=== PATIENT | female | born 1950 | race Caucasian/White ===

== ENCOUNTER 2021-09-09 07:26 | Outpatient (CLI) | payer OTHER, SELFPAY ==
--- NOTE | 2021-09-09 07:31 | ECHOCS_ITS ---
Reason For Study: ARRCLARENCE Procedure This was a 2D Doppler, Color Flow transthoracic echocardiogram. The study was technically difficult. Exam performed in department. Left Ventricle Normal LV size. Left ventricular systolic function is lower limits of normal. The estimated ejection fraction is 50 %. Stage 1 diastolic dysfunction. No regional wall motion abnormalities noted. Right Ventricle Normal RV size. Normal systolic function. Atria Normal left atrium. Normal right atrium. Bubble contrast study negative for right to left interatrial shunt. Mitral Valve There is moderate mitral annular calcification. Mild (1+) eccentric mitral valve insufficiency. Tricuspid Valve Normal tricuspid valve. Mild to moderate (1-2+) tricuspid valve insufficiency. Pulmonary artery systolic pressure is 42 mmHg. Aortic Valve Normal aortic valve. Trisinus/trileaflet aortic valve. Pulmonic Valve Normal pulmonic valve. Great Vessels Normal aortic root. The pulmonary artery is normal size. Normal inferior vena cava. Pericardium/Pleural No pericardial effusion. Medication 22 gauge I.V. with prn adaptor inserted into right arm. Diluted definity 3ml given slow IV push to enhance endocardial definition. Performed a rapid injection of agitated mix of 9 cc saline and 1cc air to assess for atrial septal defect. MMode/2D Measurements & Calculations LVIDd: 4.8 cm IVSd: 1.0 cm Ao root diam: 2.9 cm LVIDs: 3.2 cm LVPWd: 0.97 cm RVDd: 3.5 cm FS: 32.2 % LAV(MOD-bp): 76.2 ml LVAd ap4: 37.3 cm2 SV(MOD-sp4): 74.5 ml LAV(MOD-bp) Indexed: 39.7 ml/m2 LVLd ap4: 8.6 cm LAV(MOD-sp2): 74.0 ml EDV(MOD-sp4): 129.8 ml LAV(MOD-sp4): 69.8 ml EDV(sp4-el): 136.4 ml LVAs ap4: 21.0 cm2 LVLs ap4: 7.0 cm ESV(MOD-sp4): 55.3 ml ESV(sp4-el): 54.0 ml EF(MOD-sp4): 57.4 % EF(sp4-el): 60.4 % SV(sp4-el): 82.4 ml LA A4 area: 20.9 cm2 LA dimension(2D): 4.1 cm RA A4 area: 13.4 cm2 Time Measurements MV dec time: 0.23 sec Doppler Measurements & Calculations MV E max abhilash: 73.9 cm/sec Lat Peak E' Abhilash: 9.3 cm/sec Med Peak E' Abhilash: 5.1 cm/sec MV A max abhilash: 118.0 cm/sec E/E' lat: 8.0 E/E' med: 14.6 MV E/A: 0.63 Ao V2 max: 176.8 cm/sec LV V1 max: 112.0 cm/sec PA V2 max: 129.6 cm/sec Ao max P.5 mmHg LV V1 max P.0 mmHg TR max abhilash: 311.0 cm/sec TR max P.7 mmHg ECHO/Echo Complete W/ Contrast Interpretation Summary Normal LV size. Left ventricular systolic function is lower limits of normal. Bubble contrast study negative for right to left interatrial shunt. There is moderate mitral annular calcification. The estimated ejection fraction is 50 %. Stage 1 diastolic dysfunction. Contrast injection was performed. Ordering Physician: Cecil Jose Referring Physician: EPI CUEVA Performed By: Emilie Martines RDCS
== END 2021-09-09 23:59 | disposition home or self-care (01) ==
LOC: CVS 07:28
PROVIDERS: PCP Family Medicine; Referring Provider Internal Medicine Cardiovascular Disease; Visit Provider Internal Medicine Cardiovascular Disease
DX: Z01.810 Encounter for preprocedural cardiovascular examination (principal); I44.7 Left bundle-branch block, unspecified
CPT/HCPCS: 93306; Q9957; A4216; C8929

== ENCOUNTER 2021-09-23 12:33 | Outpatient (CLI) | payer OTHER, SELFPAY ==
--- NOTE | 2021-08-26 16:04 | EKG12_ITS ---
Test Reason : PREOP Blood Pressure : / mmHG Vent. Rate : 077 BPM Atrial Rate : 077 BPM P-R Int : 150 ms QRS Dur : 134 ms QT Int : 416 ms P-R-T Axes : 000 -15 108 degrees QTc Int : 470 ms Normal sinus rhythm Left bundle branch block Abnormal ECG Confirmed by ANNE LYNN, JULIUS ([id number]), technical editor RYAN CERNA ([id number]) on 08/27/2021 8:28:57 AM Referred By: EMERITA Confirmed By:JULIUS RODRÍGUEZ MD
[2021-08-26 16:39] LABS: International Normalized Ratio 1.1; Partial Thromboplast Time 29.8 Seconds (24.1-36.2); Prothrombin Time (Protime)PT. 13.2 SECONDS (11.7-14.9)
[2021-08-26 16:41] LABS: Hemoglobin A1c 5.6 % (3.8-5.6)
[2021-08-26 17:03] LABS: Hematocrit 25.6 % (37-47); Hemoglobin 12.9 g/dL (12.0-15.0); Red Blood Count 2.42 M/mm3 (4.2-5.4); White Blood Count 9.8 K/mm3 (4.4-11.0)
[2021-08-26 17:04] LABS: Mean Corp Hgb Conc 50.4 g/dL (32-36); Mean Corpuscular Hgb 53.3 pg (27.0-32.0); Mean Corpuscular Volume 105.8 fL (81-99); Mean Platelet Vol. 12.2 fl (6.2-12.0); POSITIVE COUNT YES; POSITIVE DIFFERENTIAL NO; POSITIVE MORPHOLOGY YES; Platelet Count 295 K/mm3 (150-450)
[2021-08-26 17:21] LABS: ALB/GLOB Ratio 0.9 RATIO (0.9-2.4); AST(SGOT) 17 U/L (15-37); Alanine Aminotransfer ALT/SGPT 24 U/L (13-56); Albumin, Serum 3.9 g/dL (3.2-5.0); Alkaline Phosphatase 72 U/L (45-117); Anion Gap 5 (5-15); BUN 19 mg/dL (7-18); BUN/Creat Ratio 26.8 RATIO (10-20); Calcium,Total 8.6 mg/dL (8.5-10.1); Chloride 104 mmol/L (98-107); Creatinine, Serum 0.71 mg/dL (0.55-1.02); EST Glomerular Filtration Rate 86 mL/min (>60); Est Glom Filt Rate - Afr Amer 104 mL/min (>60); Globulin 4.2 g/dL (2.2-4.2); Glucose 93 mg/dL (74-106); Potassium 3.5 mmol/L (3.5-5.1); Protein, Total 8.1 g/dL (6.4-8.2); Sodium Level 138 mmol/L (136-145)
[2021-08-26 17:27] LABS: Magnesium 2.1 mg/dL (1.6-2.6); Thyroid Stim Hormone (TSH) 0.78 uIU/mL (0.358-3.74)
[2021-08-26 17:35] LABS: Scan Indicated on CBC? Y/N YES- FLAGS NOTED
== END 2021-09-23 23:59 | disposition home or self-care (01) ==
LOC: SDC 12:35
PROVIDERS: Anesthesiology; PCP Family Medicine; Visit Provider Obstetrics & Gynecology
DX: Z01.812 Encounter for preprocedural laboratory examination (principal); Z53.9 Procedure and treatment not carried out, unspecified reason
CPT/HCPCS: 36415; 80053; 83036; 83735; 84443; 85027; 85610; 85730; 86850; 86900; 86901; 93005

== ENCOUNTER 2021-10-18 14:32 | Observation (INO) | payer MEDICARE, SELFPAY ==
--- NOTE | 2021-10-16 16:03 | HP.PCM_ITS ---
History and Physical Date of Admission: 10/18/21 Surgical History and Physical Berna Hampton, a 71 year old female 3 0 0 0 3, presents for Vaginal Hysterectomy and AP Repair on October 18, 2021. -- Berna presents with daughter(Maribel) for concerns regarding uterine prolapse worsening recently. 71 y.o. G 3 P 3 post-menopausal non-smoker and reports that she often has a bulge and has to push it back into place, as well as it causes her urinary retention that she will often have to move around to be able to void. Adds if the bulge is out too long, it causes her to have a burning sensation. Denies spotting/bleeding. Prolapse Worsening which began 1 month. Berna claims it started suddenly and has been present 1 month. It occurs intermittantly. It is located in the vagina. Berna characterizes it to be non- radiating. Berna characterizes the quality pressure.; Berna characterizes the quality burning feeling. Severity is moderate and not improving MEDICATIONS HISTORY: Current medications prescribed by our practice are: 1. Premarin 0.625 mg/gram vaginal cream, apply 1/2 gm to vagina twice weekly at Patient is also takin. HCTZ 25mg, qd 2. Levoxyl 175 mcg tablet, 1 tab 4days/wk 3. Levoxyl 150 mcg tablet, 1 tab M,W,F ALLERGIES: NKA Infections - Chicken pox and Scarlet Fever Illnesses - Throid, HTN Accidents - no injuries of consequence Hospitalizations - see surgery Review of Systems: GENERAL - Denies fever, or chills SKIN - Denies skin changes EYES - Denies visual changes EARS - Denies difficulty hearing NOSE - Denies nasal congestion or bleeding MOUTH - Denies sore throat or difficulty swallowing NECK - Denies pain or swelling RESPIRATORY - Denies shortness of breath or wheezing CARDIOVASCULAR - Denies palpitations or chest pain GASTROINTESTINAL - Denies nausea, vomiting, diarrhea, constipation GENITOURINARY - urinary retention periodically MUSCULOSKELETAL - Denies joint or muscle pain NEUROLOGICAL - Denies localized numbness or weakness PSYCHIATRIC - Denies depression or anxiety ENDOCRINE - Denies heat or cold intolerance, weight loss or gain HEMATO-IMMUNOLOGIC - Denies excesive bleeding with cuts SOCIAL HISTORY: Alcohol Use - denies drinking Smoking - denies smoking Diet - no special diet Lifestyle - moderate stress lifestyle and Exercise - minimal Seat Belt Use - most of the time Employer - Retired Illicit Drug Use - denies use of street drugs Sexual Activity - Spouse-Sig Other Name - Daniela Spouse-Sig Other Occupation - Retired Children Name(s) - 3 children Control - postmenopausal FAMILY HISTORY: Family history of Heart Disease. Mother: Colon Cancer. MENSTRUAL HISTORY: LMP Known?- Postmenopausal, Age Onset Menarche - 14 PAST PREGNANCIES: Total Pregnancies - 3; Full Term Pregnancies - 3; Premature - 0; Abortions, Induced - 0; Abortions, Spontaneous - 0; Ectopics - 0; Multiple Births - 0; Living Children - 3 SURGICAL HISTORY: 1. D and C, 11-12 ; Dennis Odne M.D. 2. Thyroid, 3. GALLBLADDER PHYSICAL EXAM BP- 190/88 Sitting, Right arm, regular cuff Temp- 98.2 Taken Orally Weight- 192.0 lbs Height- 65 inch BMI:32.0 CONSTITUTIONAL - NAD, well nourished, and well developed SKIN - No rash, lesions, or ulcers HEENT - Normocephalic, PERRLA, EOMI NECK - No nodes, no nuchal rigidity and thyroid normal size and texture LYMPH NODES - Palpation of lymph nodes in neck and groins within normal limits LUNGS - CTA x2 without wheezes, crackles or rales CARDIAC - Regular rate and rhythm without rubs, murmurs, or gallops ABDOMEN - Without hepatosplenomegaly, distention, masses, rebound, or guarding; normal bowel sounds; no hernias EXTREMITIES - No edema or calf tenderness NEUROLOGICAL - Cranial nerves II-XII grossly intact PSYCHIATRIC - A and O to time, place, person, mood and affect External Genitial Vagina - non-tender without lesions Urethra/Urethral Meatus - non-tender Bladder - non-tender Vagina - loss of rugae and Cystocele to 1 cm outside introitus with bearing down; rectocele to within 3 cm of introitus; open perineum Cervix - without cervical motion tenderness and has normal size and features without evident lesions and prolapses to within 1 cm of the introitus Uterus - multiparous size 6 cm & wt 75-125 g Adnexa - clear without massess or tenderness ASSESSMENT/PLAN: 1. Cystocele Midline and Uterovaginal Prolapse Incomplete Somewhat symptomatic especially when she is working in the garden. We discussed options for treatment including expectant management with estrogen in the vagina, pessary use, or proceeding with vaginal hysterectomy and anterior posterior repair. Pt desires proceeding with Vag Hyst and AP Repair. Discussed RBAs and all questions answered.
[2021-10-18] VITALS (9 sets, daily range): BP systolic 130–158; BP diastolic 51–64; PULSE 60–80; RESP 15–18; TEMP 36.1–36.7; O2SAT 93–100; BMI 30.8
[2021-10-18] MEDS: Lactated Ringers 1,000 ML 40 ML IV (09:44)
[2021-10-18] MEDS: Acetaminophen 500 MG Tablet 1000 MG PO ×3 (09:45→21:16)
[2021-10-18] MEDS: Gabapentin 600 MG Tablet PO (09:45)
[2021-10-18 10:00] LABS: Bedside Glucose 141 mg/dL (74-106)
--- NOTE | 2021-10-18 10:37 | PCM.OPRPT ---
Report of Operation Date of Procedure: 10/18/21 Pre-Operative Diagnosis: Uterovaginal Prolapse, Cystocele, Rectocele Post-Operative Diagnosis: Uterovaginal Prolapse, Cystocele, Rectocele Surgery/Procedure Performed:: Vaginal Hysterectomy and Anterior Posterior Repair Description of Surgical Findings:: 8 cm uterus with cystocele the protruded to the introitus and rectocele that protruded within 2 cm of the introitus. Open perineum. Surgeon: Dennis Oden residential roofer: Abby Sanon Type of Anesthesia: General (LMA) Anesthesiologist: Eugene Dupree Specimen's removed: Uterus and vaginal mucosa Drains: Escobar to straight drain Estimated Blood Loss (mL): 100 cc Fluids Replaced: Crystalloid Description of Procedure: Surgeon: Dennis Oden MD, FACOG Indications: This is a 71-year-old patient who is been having problems with vaginal prolapse symptoms. Conservative measures have not been helpful. Given this the patient desires that we proceed the above procedure. She has been counseled regarding the risk and indications of this procedure including the possibility of bleeding, infection, and injury to surrounding structures such as bowel bladder. All questions were answered. Procedure: Patient was taken to the operating room where after induction of general anesthesia she was placed in the dorsal lithotomy position and prepped and draped in the usual sterile fashion. A Escobar catheter was placed. Anterior cervix was grasped with a tenaculum and anterior cervix circumscribed with cautery on a setting of 35 W coagulation. Anterior vaginal mucosa was undermined and anterior peritoneum was easily entered. The posterior aspect of the cervix was circumscribed with a knife and posterior peritoneum easily entered. Progressive bites were taken on either side of the uterine cervix and each pedicle ligated with 0 Vicryl suture. Superior pedicles were ligated ?2 with 0 Vicryl suture and sidewall pedicles were examined and oversewn where necessary with [id number] 0 Vicryl suture to achieve hemostasis. Posterior vaginal cuff was oversewn with running locked 0 Vicryl suture. Hemostasis was noted and peritoneum was closed in a pursestring fashion incorporating superior pedicles into the stitch. Attention was turned toward the anterior repair portion of the procedure. Anterior vaginal mucosa was undermined and divided and then imbricated toward the midline with interrupted 0 Vicryl sutures. Vaginal mucosa was trimmed and then closed with interrupted 2-0 chromic suture. Vaginal cuff was then closed front to back with interrupted [id number] 0 Vicryl suture. Hemostasis was noted. Attention was turned toward the posterior repair portion of the procedure. Remnants of the hymenal ring were grasped with Allises and a V-shaped incision was made in the perineum. Rectovaginal mucosa was then undermined divided and then imbricated toward the midline with interrupted 0 Vicryl suture. Vaginal mucosa was trimmed and then closed with running locked 2-0 chromic suture. Remnants of the bulbocavernosus muscles were identified and brought toward the midline with a single [id number] 0 Vicryl suture and perineum was closed in the usual fashion with running and subcuticular, and [id number] 2-0 chromic suture. Hemostasis was noted. Escobar catheter was again opened and clear yellow urine was noted. Vagina was packed with iodoform tape. Patient tolerated the procedure well was taken to recovery room in satisfactory condition; sponge instrument and needle counts were all reportedly correct. Estimated blood loss for the case was 100 cc. Ancef 2 g IV was given prior to beginning the operative procedure. There were no apparent complications of the surgery. Specimen to pathology was uterus and vaginal mucosa. Grafts/Implants Used: None Complications None Admit VTE Documentation VTE Present on Admission: Yes VTE Mechan Device Prophylaxis: SCD's VTE Pharm Prophylaxis ordered?: Yes
[2021-10-18] MEDS: Cefazolin 2 GM in 0.9% Normal Saline 100 ML IV (10:50)
--- NOTE | 2021-10-18 10:55 | HYST_PTH ---
PATIENT: RUBI JULIAN LOC: [facility] U#:[id number] AGE/SX: 71/F ROOM: ME321 RE10/18/[address]: Dr. Dennis Oden MD : [id number] BED: 1 DIS: 10/19/2021 SPEC #: [id number] RECD: 10/18/21 14:32 STATUS: DESTINEE REUbaldo #: [id number] FARAZ: 10/18/21 10:[address]: Dennis Oden DEPT: SURGICAL PATHOLOGY RECD BY: Emily Osuna ENTERED: 10/19/21 09:51 SP TYPE: HYSTERECT OTHR DR: Dr. Fab Flaherty MD Tissues: Uterus, NOS Procedures: Surgery Specimen Level II Surgery Specimen Level V HEADER OPERATION: Vaginal hysterectomy, A & P repair PRE-OP DIAGNOSIS: Cystocele midline and uterovaginal prolapse incomplete TISSUE SUBMITTED: Uterus, cervix, vaginal tissue MICROSCOPIC DIAGNOSIS Uterus, hysterectomy: Cervix ? nabothian cysts, squamous metaplasia and chronic inflammation. Endometrium ? inactive endometrium with focal cystic change. Myometrium ? leiomyomas, adenomyosis and calcifications of vessels lainez. Vaginal mucosa, anterior and posterior repair: Mild chronic inflammation. AM:garcia 10/20/2021 MICROSCOPIC DESCRIPTION Slides are reviewed. GROSS DESCRIPTION Received in fixative is one container labeled with the patient's name and designated uterus. The specimen consists of a uterus with attached cervix without fallopian tubes or ovaries measuring 8.7 x 3.6 x 2.5 cm and weighing 47.3 gm. The ectocervix is unremarkable. The cervical os is oval in contour. The endocervical canal measures 3 cm in length and is grossly unremarkable. The triangular endometrial cavity measures 3 x 1.5 cm. The velvety, reddish-lira endometrium measures up to 0.2 cm in thickness. The myometrium measures 1.3 cm in average thickness and contains a firm, rubbery nodule measuring 0.9 cm in diameter that grossly resembles a leiomyoma. Also present free in the container are multiple irregular fragments of glistening lira mucosa with attached submucosal tissue measuring in aggregate 6.5 x 5 x 1.3 cm. No mucosal mass lesions are identified. Pump Mechanic sections are submitted in eight cassettes as follows: 1 - anterior cervix, 2 - posterior cervix, 3 & 4 - anterior uterine wall, 5 & 6 - posterior uterine wall, 7 - myometrial mass, 8 - vaginal mucosa. / AM:garcia 10/19/2021 TC:1 CPT: 09768, 44527
--- NOTE | 2021-10-18 12:36 | PCM.DC ---
Discharge Instructions Diet Discharge Diet: No restrictions Activity Discharge Activity: May Shower and May Take a Tub Bath May resume sexual activity in: 6 weeks (nothing in the vagina.) Lifting Restrictions: 25 pounds for 6 weeks. Additional Activity Instructions:: Nothing in the vagina for 6 weeks please; no lifting more than 20-25 lbs for 6 weeks. Use Ibuprophen 800 mg orally every 8 hours as needed for pain. Can also add Tylenol 1000 mg every 8 hours if needed for pain. If Ibuprophen and Tylenol are not effective then use the Oxycodone but keep in mind it can cause serious constipation issues. Drink lots of water. Call if bleeding more than a pad per hour. Use the colace as constipation is a big issue after this type of surgery. Steps and walking are OK. Activity is encouraged but do not over do it !! Dressing / Incision Call your doctor if your incision/area has: Continuous Slow Oozing, Sudden Increased Bleeding, Increased Pain/ Swelling, Increased Redness and Foul Smelling Discharge Call your doctor if you observe: Fever of 101 or Higher, Inability to urinate, Inability to have a bowel movement, Using more than 1 pad per hour and - (Some vaginal bleeding may be noted for up to 4-8 weeks.) Follow Up Care Please Follow Up With: Dennis Oden MD When: Call [phone] for an appointment to be seen in 2 weeks. Test Results: Test results from this visit will be discussed in further detail at your follow-up appointment, if applicable. Discharge Plan Admission Admit Date/Time: 10/18/21 14:32 Primary Reason for Your Visit: Vaginal Hysterectomy and Anterior Posterior Repair Attending Provider: Dennis Oden Primary Care Provider: Fab Flaherty Discharge Orders/Prescriptions Prescriptions: New docusate sodium 100 mg tablet 100 mg PO BID PRN (Reason: constipation) Qty: 60 RF: 1 oxycodone 5 mg capsule 5 mg PO Q6H PRN (Reason: pain (scale score 7-10)) 7 Days Qty: 10 RF: 0 Continued milk thistle 180 mg Capsule 180 mg PO DAILY RF: 0 zinc 50 mg Tablet 50 mg PO DAILY RF: 0 hydrochlorothiazide 25 mg Tablet 25 mg PO DAILY RF: 0 calcium carbonate-vitamin D2 600 mg calcium- 200 unit Tablet 1 tab PO DAILY RF: 0 coenzyme Q10 [CoQ-10] 100 mg Capsule 100 mg PO DAILY RF: 0 cholecalciferol (vitamin D3) [Vitamin D3] 25 mcg (1,000 unit) Tablet 25 mcg PO DAILY RF: 0 Zyrtec 10 mg Capsule 10 mg PO DAILY RF: 0 levothyroxine 150 mcg Capsule 150 mcg PO SUMOWEFR RF: 0 red yeast rice 600 mg Tablet 600 mg PO DAILY RF: 0 levothyroxine 175 mcg Capsule 175 mcg PO TUTHSA RF: 0 Referrals / Follow Up: Fab Flaherty MD [Primary Care Provider] - Disposition Disposition (needs filled in before D/C Order can be placed): Home, Self Care
[2021-10-18] MEDS: Lactated Ringers 1,000 ML 100 ML IV (16:11)
[2021-10-18] MEDS: Enoxaparin 40 MG/0.4 ML Syringe SC (18:22)
[2021-10-18] MEDS: Cefazolin 1 GM/50 ML BAG IV (18:42)
[2021-10-18] MEDS: Docusate Sodium 100 MG Capsule PO (21:17)
[2021-10-18] MEDS: Ibuprofen 600 MG Tablet PO (22:21)
[2021-10-19 02:00] VITALS: BP 144/54; PULSE 66; RESP 16; TEMP 37.1; O2SAT 96
[2021-10-19] MEDS: oxyCODONE 5 MG Tablet PO (02:09)
[2021-10-19] MEDS: Cefazolin 1 GM/50 ML BAG IV (02:09)
[2021-10-19] MEDS: Lactated Ringers 1,000 ML 100 ML IV (02:09)
[2021-10-19] MEDS: Acetaminophen 500 MG Tablet 1000 MG PO ×2 (04:44→08:55)
[2021-10-19] MEDS: Levothyroxine 175 MCG Tablet PO (04:44)
[2021-10-19 06:15] LABS: Mean Platelet Vol. 11.2 fl (6.2-12.0); POSITIVE COUNT YES; POSITIVE MORPHOLOGY YES; Platelet Count 408 K/mm3 (150-450); White Blood Count 18.5 K/mm3 (4.4-11.0)
[2021-10-19 06:16] VITALS: BP 138/59; PULSE 63; RESP 16; TEMP 36.9; O2SAT 94
[2021-10-19 07:22] VITALS: O2SAT 93
[2021-10-19 07:34] LABS: Hematocrit 34.5 % (37-47); Hemoglobin 11.5 g/dL (12.0-15.0); Mean Corpuscular Hgb 28.8 pg (27.0-32.0); Mean Corpuscular Volume 86.3 fL (81-99)
[2021-10-19 07:35] LABS: Mean Corp Hgb Conc 33.3 g/dL (32-36)
--- NOTE | 2021-10-19 08:22 | PCM.PN.OB ---
Subjective Subjective Patient without complaints. Tolerating diet well. Minimal vaginal bleeding reported. Vaginal pack removed and minimal bleeding noted. Hemoglobin and urine output has been good. Objective Data Objective Data Vital Signs: Vital Signs Temp Pulse Resp BP Pulse Ox 98.4 F 63 16 138/59 H 94 10/19/21 06:16 10/19/21 06:16 10/19/21 06:16 10/19/21 06:16 10/19/21 06:16 Oxygen Flow Rate (L/min) 2 Oxygen Delivery Method Room Air Weight: 185 lb 3.013 oz Body Mass Index (BMI) 30.8 Intake & Output: Intake and Output for Last 24 Hours 10/17/21 10/18/21 10/19/21 23:59 23:59 23:59 Intake Total 617 / 617 1046.67 / 1046.67 Output Total 1260 / 1560 750 / 750 Balance -643 / -943 296.67 / 296.67 Lab / Micro Data Result Diagrams: 10/19/21 05:39 Labs: Laboratory Results - last 24 hr 10/18/21 09:47: Blood Type Not Reportable, Antibody Screen NEGATIVE 10/18/21 09:47: Blood Type A POSITIVE 10/18/21 09:48: POC Glucose 141 H 10/19/21 05:39: WBC 18.5 H, RBC 4.00 L, Hgb 11.5 L, Hct 34.5 L, MCV 86.3, MCH 28.8, MCHC 33.3, RDW Std Deviation Not Reportable, RDW Coeff of Nichole Not Reportable, Plt Count 408, MPV 11.2 Assessment & Plan (1) Incomplete uterovaginal prolapse: PLAN: Doing well status post vaginal hysterectomy and anterior posterior repair postoperative day #1. Vaginal pack removed with minimal bleeding noted. Will discontinue Escobar catheter and when patent patient is able to void will discharge to home with routine instructions.
[2021-10-19 08:35] VITALS: BP 120/48; PULSE 65; RESP 18; TEMP 37.1; O2SAT 93
[2021-10-19] MEDS: hydroCHLOROthiazide 25 MG Tablet PO (08:54)
[2021-10-19] MEDS: Docusate Sodium 100 MG Capsule PO (08:54)
[2021-10-19] MEDS: Loratadine 10 MG Tablet PO (08:55)
[2021-10-19 13:24] VITALS: BP 113/45; PULSE 63; RESP 18; TEMP 36.8; O2SAT 96
== END 2021-10-19 14:23 | disposition home or self-care (01) ==
LOC: SDC 15:04 → MS3 15:04
PROVIDERS: Admitting Provider Obstetrics & Gynecology; PCP Family Medicine; Referring Provider Obstetrics & Gynecology; Visit Provider Obstetrics & Gynecology
PROC: (CPT 58260; principal; 2021-10-18 10:35)
DX: N81.2 Incomplete uterovaginal prolapse (principal); Z78.0 Asymptomatic menopausal state; I10 Essential (primary) hypertension; E03.9 Hypothyroidism, unspecified; Z79.899 Other long term (current) drug therapy; Z79.890 Hormone replacement therapy; N88.8 Other specified noninflammatory disorders of cervix uteri; D25.9 Leiomyoma of uterus, unspecified
CPT/HCPCS: 58260; 57260; 00944; 36415; 82962; 85027; 86850; 86900; 86901; 88302; 88307; 94762; 96361; 96365; 96366; 96372; 99218; 99251; J7120; G0378; G0463; J2405; J3475